=== PATIENT | male | born 1935 | race Caucasian/White ===

== ENCOUNTER → 2016-03-06 | Outpatient (CLI) | payer MEDICARE, OTHER ==
[~2016-03-06] MED LIST: 1-ME1LIQ OR; ALPR.25; BABY81CH PO; CLON-352 PO; FISH500C PO; HYDR-2768 PO; LISI40TA PO; LORC10TA PO; PROM1SUP12 PR; ZOCO10TA PO; [UNRECOGNIZED DRUG - OTHER]
[2016-03-06 09:40] LABS: ALKALINE PHOSPHATASE 81 U/L (45-117); ALT (GPT) 19 U/L (12-78); ANION GAP 8 MEQ/L (5-15); AST (GOT) 12 U/L (15-37); BICARBONATE 29.9 MEQ/L (21.0-32.0); BLOOD UREA NITROGEN 13 MG/DL (7-18); CHLORIDE 100 MEQ/L (98-107); GLOMERULAR FILTRATION RATE 61 ML/MIN (>89); GLUCOSE,FASTING 85 MG/DL (74-99); HDL CHOLESTEROL 59.9 MG/DL (40.0-60.0); LDL CHOLESTEROL 72 MG/DL (0-99); POTASSIUM 3.8 MEQ/L (3.5-5.1); SODIUM (NA) 138 MEQ/L (136-145); TOTAL BILIRUBIN ADULT 0.5 MG/DL (0.2-1.0)
== END ==
LOC: PLAB 07:19
PROVIDERS: ATTEND Family Medicine
DX: E78.00 Pure hypercholesterolemia, unspecified (principal); I10 Essential (primary) hypertension; Z51.81 Encounter for therapeutic drug level monitoring
CPT/HCPCS: 36415; 80053; 80061

== ENCOUNTER → 2016-09-14 | Outpatient (CLI) | payer MEDICARE, OTHER ==
[2016-09-14 08:55] LABS: AUTOMATED NEUTROPHIL # 3.9 TH/MM3 (1.8-7.7); BASOPHIL % 0.5 % (0.0-2.0); EOSINOPHIL # 0.2 TH/MM3 (0-0.4); HEMATOCRIT 37.6 % (39.0-51.0); HEMO FLAGS DIFF FINAL; LYMPH % 19.7 % (9.0-44.0); LYMPHOCYTE # 1.1 TH/MM3 (1.0-4.8); MEAN CELL VOLUME 83.4 FL (80.0-100.0); MEAN CORPUSCULAR HEMOGLOBIN 28.1 PG (27.0-34.0); MEAN CORPUSCULAR HGB CONC 33.7 % (32.0-36.0); MONO % 9.4 % (0.0-8.0); NEUT % 66.4 % (16.0-70.0); PLATELET COUNT 269 TH/MM3 (150-450); RED BLOOD COUNT 4.51 MIL/MM3 (4.50-5.90); RED CELL DISTRIBUTION WIDTH 13.9 % (11.6-17.2); WHITE BLOOD COUNT 5.8 TH/MM3 (4.0-11.0)
[2016-09-14 11:45] LABS: ALT (GPT) 19 U/L (12-78); ANION GAP 9 MEQ/L (5-15); AST (GOT) 13 U/L (15-37); BICARBONATE 26.3 MEQ/L (21.0-32.0); CHLORIDE 100 MEQ/L (98-107); GLOMERULAR FILTRATION RATE 53 ML/MIN (>89); GLUCOSE,FASTING 87 MG/DL (74-99); POTASSIUM 4.1 MEQ/L (3.5-5.1); SODIUM (NA) 135 MEQ/L (136-145)
[2016-09-14 11:49] LABS: ALKALINE PHOSPHATASE 70 U/L (45-117); BLOOD UREA NITROGEN 14 MG/DL (7-18); HDL CHOLESTEROL 53.3 MG/DL (40.0-60.0); LDL CHOLESTEROL 75 MG/DL (0-99); TOTAL BILIRUBIN ADULT 0.4 MG/DL (0.2-1.0)
== END ==
LOC: PLAB 07:17
PROVIDERS: ATTEND Family Medicine
DX: E78.5 Hyperlipidemia, unspecified (principal); I10 Essential (primary) hypertension; Z51.81 Encounter for therapeutic drug level monitoring
CPT/HCPCS: 36415; 80053; 80061; 85025

== ENCOUNTER → 2016-10-19 | Outpatient (CLI) | payer MEDICARE, OTHER ==
[2016-10-19 09:31] LABS: AUTOMATED NEUTROPHIL # 4.2 TH/MM3 (1.8-7.7); BASOPHIL % 0.6 % (0.0-2.0); EOSINOPHIL # 0.2 TH/MM3 (0-0.4); EOSINOPHIL % 3.1 % (0.0-4.0); HEMATOCRIT 38.2 % (39.0-51.0); HEMO FLAGS DIFF FINAL; LYMPH % 17.8 % (9.0-44.0); MEAN CELL VOLUME 81.7 FL (80.0-100.0); MEAN CORPUSCULAR HEMOGLOBIN 27.9 PG (27.0-34.0); MEAN CORPUSCULAR HGB CONC 34.2 % (32.0-36.0); MONO % 7.7 % (0.0-8.0); NEUT % 70.8 % (16.0-70.0); PLATELET COUNT 284 TH/MM3 (150-450); RED BLOOD COUNT 4.68 MIL/MM3 (4.50-5.90); RED CELL DISTRIBUTION WIDTH 13.5 % (11.6-17.2); WHITE BLOOD COUNT 5.9 TH/MM3 (4.0-11.0)
[2016-10-19 09:35] LABS: ANION GAP 7 MEQ/L (5-15); AST (GOT) 16 U/L (15-37); BLOOD UREA NITROGEN 12 MG/DL (7-18); CHLORIDE 97 MEQ/L (98-107); GLOMERULAR FILTRATION RATE 59 ML/MIN (>89); GLUCOSE,FASTING 90 MG/DL (74-99); POTASSIUM 3.6 MEQ/L (3.5-5.1); SODIUM (NA) 132 MEQ/L (136-145)
[2016-10-19 09:42] LABS: ALKALINE PHOSPHATASE 65 U/L (45-117); ALT (GPT) 17 U/L (12-78); FERRITIN 20 NG/ML (26-388); TOTAL BILIRUBIN ADULT 0.5 MG/DL (0.2-1.0); TRANSFERRIN IRON PROFILE 280 MG/DL (200-360)
== END ==
LOC: PLAB 07:08
PROVIDERS: ATTEND Family Medicine
DX: D64.9 Anemia, unspecified (principal); I10 Essential (primary) hypertension; N18.3 Chronic kidney disease, stage 3 (moderate)
CPT/HCPCS: 36415; 80053; 82306; 82728; 83540; 83550; 83970; 85025

== ENCOUNTER → 2017-02-08 | Outpatient (CLI) | payer MEDICARE, OTHER ==
[2017-02-08 09:18] LABS: AUTOMATED NEUTROPHIL # 4.9 TH/MM3 (1.8-7.7); BASOPHIL % 0.5 % (0.0-2.0); EOSINOPHIL # 0.2 TH/MM3 (0-0.4); EOSINOPHIL % 2.6 % (0.0-4.0); HEMATOCRIT 38.6 % (39.0-51.0); HEMO FLAGS DIFF FINAL; LYMPH % 15.9 % (9.0-44.0); LYMPHOCYTE # 1.1 TH/MM3 (1.0-4.8); MEAN CELL VOLUME 83.2 FL (80.0-100.0); MEAN CORPUSCULAR HEMOGLOBIN 28.6 PG (27.0-34.0); MEAN CORPUSCULAR HGB CONC 34.4 % (32.0-36.0); MONO % 8.2 % (0.0-8.0); NEUT % 72.8 % (16.0-70.0); PLATELET COUNT 287 TH/MM3 (150-450); RED BLOOD COUNT 4.64 MIL/MM3 (4.50-5.90); RED CELL DISTRIBUTION WIDTH 13.9 % (11.6-17.2); WHITE BLOOD COUNT 6.7 TH/MM3 (4.0-11.0)
[2017-02-08 09:27] LABS: BLOOD, URINE NEG (NEG); GLUCOSE,URINE NEG (NEG); HYALINE CAST, URINE 4 /lpf (RARE); KETONE, URINE NEG (NEG); MUCUS URINE FEW /lpf (OCC); NITRITE,URINE NEG (NEG); SQUAMOUS EPITHELIAL CELL URINE <1 /hpf (0-5); URINE COLOR YELLOW (YELLW/STRAW)
[2017-02-08 09:45] LABS: ANION GAP 8 MEQ/L (5-15); AST (GOT) 33 U/L (15-37); BLOOD UREA NITROGEN 13 MG/DL (7-18); CHLORIDE 95 MEQ/L (98-107); GLOMERULAR FILTRATION RATE 55 ML/MIN (>89); GLUCOSE,FASTING 86 MG/DL (74-99); POTASSIUM 3.8 MEQ/L (3.5-5.1); SODIUM (NA) 131 MEQ/L (136-145)
[2017-02-08 09:49] LABS: ALKALINE PHOSPHATASE 71 U/L (45-117); ALT (GPT) 23 U/L (12-78); FERRITIN 31 NG/ML (26-388); HDL CHOLESTEROL 61.2 MG/DL (40.0-60.0); LDL CHOLESTEROL 75 MG/DL (0-99); LDL CHOLESTEROL DIRECT 89 MG/DL (0-99); TOTAL BILIRUBIN ADULT 0.5 MG/DL (0.2-1.0); TRANSFERRIN IRON PROFILE 271 MG/DL (200-360)
== END ==
LOC: PLAB 07:45 → EDSTATUS 07:52 → PLAB 07:53
PROVIDERS: ATTEND Family Medicine
DX: E78.5 Hyperlipidemia, unspecified (principal); I12.9 Hypertensive chronic kidney disease with stage 1 through stage 4 chronic kidney disease, or unspecified chronic kidney disease; N18.3 Chronic kidney disease, stage 3 (moderate); D63.1 Anemia in chronic kidney disease; Z51.81 Encounter for therapeutic drug level monitoring
CPT/HCPCS: 36415; 80053; 80061; 81001; 82043; 82306; 82728; 83540; 83550; 83721; 85025

== ENCOUNTER → 2017-03-05 | Outpatient (CLI) | payer MEDICARE, OTHER ==
[2017-03-05 14:01] LABS: CREATININE 24 HOUR, URINE 1.07 GM/24HR (0.63-2.50)
== END ==
LOC: PLAB 09:29
PROVIDERS: ATTEND Family Medicine
DX: R80.9 Proteinuria, unspecified (principal); R68.89 Other general symptoms and signs
CPT/HCPCS: 36415; 82570; 84157; 84443

== ENCOUNTER → 2017-04-22 | Outpatient (CLI) | payer MEDICARE, OTHER ==
[~2017-04-22] MED LIST changes: +AMLO10 PO; +CLON0.1T PO; +FERR325T18 PO; +HYDR12.57 PO; +PERC7.5T13 PO; +TIMO0.5S30 EACH EYE; +VITA1000 PO; +ZOCO20TA PO
[2017-04-22 11:48] LABS: HEMATOCRIT 40.7 % (39.0-51.0); HEMOGLOBIN 13.6 GM/DL (13.0-17.0); MEAN CORPUSCULAR HEMOGLOBIN 27.9 PG (27.0-34.0); MEAN CORPUSCULAR HGB CONC 33.5 % (32.0-36.0); MEAN PLATELET VOLUME 7.1 FL (7.0-11.0); PLATELET COUNT 259 TH/MM3 (150-450); RED CELL DISTRIBUTION WIDTH 12.8 % (11.6-17.2); WHITE BLOOD COUNT 8.8 TH/MM3 (4.0-11.0)
[2017-04-22 12:00] LABS: BICARBONATE 29.2 MEQ/L (21.0-32.0)
== END ==
LOC: PHPRE 10:58
PROVIDERS: ATTEND Plastic Surgery
DX: Z01.812 Encounter for preprocedural laboratory examination (principal); D03.71 Melanoma in situ of right lower limb, including hip
CPT/HCPCS: 36415; 80051; 85027

== ENCOUNTER → 2017-04-22 | Outpatient (CLI) | payer MEDICARE, OTHER | LOC: OLAB 10:29 | PROVIDERS: ATTEND Plastic Surgery | DX: D03.71 Melanoma in situ of right lower limb, including hip (principal) ==

== ENCOUNTER → 2017-04-27 | Day surgery (SDC) | payer MEDICARE, OTHER ==
--- NOTE | 2017-04-26 08:55 | MH ---
cc: ASHLEY JIMENEZ M.D. 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 Patient for excision and full-thickness skin graft. HISTORY OF PRESENT ILLNESS: This is an 82-year-old white male who was referred to me from his energy sales consultant. 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 The patient had the biopsy done on April 02, 2017. The area is an approximately 1.5 cm in diameter lesion with excision approximately 2.0 to 2.5 cm is planned - being a melanoma in situ, it can be at the subcutaneous level and reconstruction with a skin graft would be one of the choices. The patient was explained the overall reconstruction options in my office. He understands that the skin graft may or may not heal completely and there may be a need for further reconstruction or an open wound care type of management. The removal of melanoma is the primary goal. The patient does have a history of melanoma removed from his abdomen with what appears to be a 3 inch long scar, possibly this may have been a deep melanoma. PAST MEDICAL HISTORY: His past medical history is significant for: 1. High blood pressure. 2. He is not diabetic. 3. He denies smoking. 4. He has a history of prostate cancer. 5. Surgery for hemorrhoids. 6. The previous melanoma. 7. Gallbladder surgery. CURRENT MEDICATIONS: 1. Cholesterol-lowering agents. 2. A high blood pressure medication. 3. He denies taking any anticoagulation. 4. No aspirin. The list of medications includes: 1. Lisinopril. 2. Clonidine. 3. Norvasc. 4. Simvastatin. 5. Hydrochlorothiazide. 6. Timolol eye drops. 7. Vitamins. ALLERGIES: THE PATIENT IS NOT ALLERGIC TO ANY MEDICATIONS. REVIEW OF SYSTEMS: HEIGHT: He is 5 feet 7. WEIGHT: 170 pounds. GENERAL: He ambulates by himself. No acute health changes. The patient did have an episode of hypertension - over 220 systolic in my office when he was first seen and surgery under local anesthesia was planned. He was hypertensive at baseline with no injection or any other intervention so the procedure was cancelled at that time. The patient seems to have been stable. He has gone through his medical primary care doctor Dr. Martínez and is being scheduled for surgery under anesthesia at the hospital. PHYSICAL EXAMINATION: GENERAL: Examination shows an 82-year-old white male with stable vital signs. The patient is alert, cooperative and fully oriented, fully ambulatory. HEAD AND NECK: The head and neck shows clear sclerae. Equal pupils. Trachea is midline. The thyroid is not enlarged. There are no other gross masses noted in the neck. Neck movements are somewhat restricted in flexion. CHEST: The chest has good expansion with normal breathing and normal breath sounds. 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 HEART: The heart sounds are somewhat muffled due to his chest proportions, otherwise normal. No carotid bruits noted. ABDOMEN: The abdomen is slightly protuberant, soft, previous surgical scar is noted. GENITALIA: The genitals were not examined. EXTREMITIES: The upper and lower extremities are grossly intact. The local examination of the right foot area shows the biopsy site present on the dorsolateral midportion. The area is healing reasonably well without any active cellulitis or drainage. He does have some degree of peripheral vascular disease. The pulses are faintly palpable and he seems to have slightly congested look to his feet compared to the rest of the extremities but no gross venous disease is noted. The lesion diameter again is approximately 1.5 cm. The biopsy scar itself is about 8 to 9 mm in diameter. PLAN: The plan is to excise the area with 5 to 8 mm margins and reconstruct with full thickness skin graft harvested from his right groin or lower abdomen skin. The patient's laboratory tests will be reviewed when available on the chart. signed, not fully reviewed MD GARRET Pedersen/DREA /10:58 AM /8:45 AM YASIR
[~2017-04-27] VITALS: Ht 172.7 cm; Wt 77.5 kg
[~2017-04-27] MED LIST changes: -1-ME1LIQ OR; +ACETAMINOPHEN 1000 MG/100 ML 100 ML IV ONE; -ALPR.25; -BABY81CH PO; +BUPIVACAINE/EPINEPHRINE 0.25% 50 ML VIAL ONE; +CHLORHEXIDINE GLUCONATE 2 % 1 PACK (2 CLOTHS) TOPICAL ONE; -CLON-352 PO; -FISH500C PO; -HYDR-2768 PO; +LACTATED RINGER'S 1000 ML INJ 1,000 ML ONE; +LIDOCAINE 1%/EPINEPHrine 1:100,000 SOLN 30 ML VIAL ONE; +LIDOCAINE HCL 1% PF 5 ML SYRINGE OTHER ONE; -LORC10TA PO; +MORPHINE SULFATE 4 MG/ML INJ ONE; +PHENYLEPH/NS 1000 MCG/10 ML SYR IV ONE; +POVIDONE IODINE 5% (ANTISEPSIS KIT) 4 APPLICATIONS EACH NARE ONE; -PROM1SUP12 PR; +PROPOFOL 200 MG/20 ML AMP IV ONE; +SODIUM CHLORIDE 0.9% 20 ML VIAL ONE; +SODIUM CHLORIDE FLUSH BID IV FLUSH SCH; +SODIUM CHLORIDE FLUSH PRN IV FLUSH; -ZOCO10TA PO; -[UNRECOGNIZED DRUG - OTHER]; +ceFAZolin 1,000 MG/NS 100 ML IV SCH; +ePHEDrine/NS 25 MG/5 ML SYRINGE IV ONE; +hydrALAZINE HCL 20 MG/ML VIAL ONE
--- NOTE | 2017-04-27 12:41 | PD.OP ---
Operative Report Postoperative Diagnosis: Melanoma in situ Right lateral dorsal foot Procedure: Excision Melanoma in situ Right lateral dorsal foot, 2 cm diameter, Full thickness skin graft from Right lower abdomen Anesthesia: Surgeon: Josue Bai Airline Transport Pilot(s): rn Resident Surgeon: none Operation and Findings: Preop markings were done in holding Patient had high BP brought under control by anesthesiologist. Patient brought to the OR, Gen anesthesia started Prep and drape done Time out completed Marcaine 0.25% with epi diluted 1:1 with saline injected at the lesion and also at the donor site right lower abdomen Specimen excised at subcutaneous level, suture marked superior. Hemostasis with pint cautery Skin graft harvested from right lower abdomen loose skin. Applied to the right foot defect, 4/0 Chromics, with 4 corner tie over sutures Donor site closed with 4/0 Vicryl internal sutures and dermabond Sterile dressing applied to the right foot Blood loss minimal less than 2-3 cc No complications patient remained stable. Josue Bai MD Apr 27, 2017 12:41
[2017-04-27 14:48] VITALS: BP 175/89; PULSE 80; RESP 16; TEMP 98.1; O2SAT 96
== END | disposition home or self-care (01) ==
LOC: PHSDC 08:13
PROVIDERS: ATTEND Plastic Surgery
DX: D03.71 Melanoma in situ of right lower limb, including hip (principal); I10 Essential (primary) hypertension; Z85.46 Personal history of malignant neoplasm of prostate
CPT/HCPCS: 00400; 11622; 15240; 88305; J0131; J0360; J0690; J2270; J2370; J3010; J7120

== ENCOUNTER → 2017-08-23 | Outpatient (CLI) | payer MEDICARE, OTHER ==
[~2017-08-23] MED LIST changes: -ACETAMINOPHEN 1000 MG/100 ML 100 ML IV ONE; -BUPIVACAINE/EPINEPHRINE 0.25% 50 ML VIAL ONE; -CHLORHEXIDINE GLUCONATE 2 % 1 PACK (2 CLOTHS) TOPICAL ONE; -FERR325T18 PO; -LACTATED RINGER'S 1000 ML INJ 1,000 ML ONE; -LIDOCAINE 1%/EPINEPHrine 1:100,000 SOLN 30 ML VIAL ONE; -LIDOCAINE HCL 1% PF 5 ML SYRINGE OTHER ONE; -MORPHINE SULFATE 4 MG/ML INJ ONE; -PHENYLEPH/NS 1000 MCG/10 ML SYR IV ONE; -POVIDONE IODINE 5% (ANTISEPSIS KIT) 4 APPLICATIONS EACH NARE ONE; -PROPOFOL 200 MG/20 ML AMP IV ONE; -SODIUM CHLORIDE 0.9% 20 ML VIAL ONE; -SODIUM CHLORIDE FLUSH BID IV FLUSH SCH; -SODIUM CHLORIDE FLUSH PRN IV FLUSH; -ceFAZolin 1,000 MG/NS 100 ML IV SCH; -ePHEDrine/NS 25 MG/5 ML SYRINGE IV ONE; -hydrALAZINE HCL 20 MG/ML VIAL ONE
[2017-08-23 10:18] LABS: ALBUMIN 3.6 GM/DL (3.4-5.0); AST (GOT) 17 U/L (15-37); BICARBONATE 25.9 MEQ/L (21.0-32.0); BLOOD UREA NITROGEN 12 MG/DL (7-18); CALCIUM 9.1 MG/DL (8.5-10.1); CHLORIDE 97 MEQ/L (98-107); CREATININE 1.35 MG/DL (0.60-1.30); GLOMERULAR FILTRATION RATE 50 ML/MIN (>89); GLUCOSE,FASTING 92 MG/DL (74-99); SODIUM (NA) 133 MEQ/L (136-145)
[2017-08-23 10:19] LABS: CHOLESTEROL 141 MG/DL (120-200)
[2017-08-23 10:25] LABS: ALKALINE PHOSPHATASE 78 U/L (45-117); ALT (GPT) 23 U/L (12-78); CHOLESTEROL/ HDL RATIO 2.43 RATIO; HDL CHOLESTEROL 57.9 MG/DL (40.0-60.0); LDL CHOLESTEROL 68 MG/DL (0-99); LDL CHOLESTEROL DIRECT 82 MG/DL (0-99); TOTAL BILIRUBIN ADULT 0.4 MG/DL (0.2-1.0); TRIGLYCERIDES 78 MG/DL (42-150)
== END ==
LOC: PLAB 06:48
PROVIDERS: ATTEND Family Medicine
DX: E78.5 Hyperlipidemia, unspecified (principal); N18.3 Chronic kidney disease, stage 3 (moderate)
CPT/HCPCS: 36415; 80053; 80061; 82306; 83721; 83970